=== PATIENT | female | born 1975 | race Caucasian/White ===

== ENCOUNTER 2017-11-12 00:29 | Day surgery (SDC) | payer OTHER ==
[~2017-11-12 00:29] MED LIST: Allergy Relief10 M1 PO; Hydrocortisone5 MG PO; Keflex500 MG PO; MONT10T PO; ONDA4 PO; PRED20 PO; PROG100 PO; RIFA550T2; WP THYROID16.25 MG PO; [UNRECOGNIZED DRUG - OTHER] IV
== END 2017-11-12 10:31 | disposition home or self-care (01) ==
LOC: ATC 00:29
DX: D80.3 Selective deficiency of immunoglobulin G [IgG] subclasses (principal); Z79.899 Other long term (current) drug therapy; Z88.2 Allergy status to sulfonamides
CPT/HCPCS: 96365; 96366; J1568

== ENCOUNTER 2017-12-03 01:02 | Day surgery (SDC) | payer OTHER | END 2017-12-03 09:52 | disposition home or self-care (01) | LOC: ATC 01:02 | DX: D80.3 Selective deficiency of immunoglobulin G [IgG] subclasses (principal); Z88.2 Allergy status to sulfonamides | CPT/HCPCS: 96365; 96366; J1568 ==

== ENCOUNTER → 2017-12-10 | Outpatient (CLI) | payer OTHER ==
[2017-12-14 10:56] LABS: HPV Genotype 16 Not Detected (NOTDET); HPV Genotype 18 Not Detected (NOTDET)
[2017-12-18 08:30] LABS: HPV High Risk Other Not Detected (NOTDET)
== END | disposition home or self-care (01) ==
LOC: LAB 09:42
PROVIDERS: Obstetrics & Gynecology
DX: Z01.419 Encounter for gynecological examination (general) (routine) without abnormal findings (principal)
CPT/HCPCS: 87624; G0123

== ENCOUNTER → 2018-01-21 | Outpatient (CLI) | payer OTHER ==
[2018-01-21 15:03] LABS: Candida species (DNA Probe) Negative (NEGATIVE); G. vaginalis (DNA Probe) Negative (NEGATIVE); T. vaginalis (DNA Probe) Negative (NEGATIVE)
== END | disposition home or self-care (01) ==
LOC: LAB 11:24
PROVIDERS: Obstetrics & Gynecology
DX: N89.8 Other specified noninflammatory disorders of vagina (principal)
CPT/HCPCS: 87480; 87510; 87660

== ENCOUNTER → 2020-02-16 | Outpatient (CLI) | payer BC | END | disposition home or self-care (01) | LOC: LAB SHORT 09:08 → PLD 09:08 | DX: R87.613 High grade squamous intraepithelial lesion on cytologic smear of cervix (HGSIL) (principal) | CPT/HCPCS: 88305; 88342 ==

== ENCOUNTER 2020-04-22 08:39 | Day surgery (SDC) | payer BC ==
[~2020-04-22] VITALS: Ht 154.9 cm; Wt 48.5 kg
[~2020-04-22 08:39] MED LIST changes: +THYROID PO
--- NOTE | 2020-04-22 09:21 | NUR ---
History, Chart, Medications and Allergies reviewed before start of procedure. Patient confirms NPO status and agrees with scheduled surgery. Reports that she did not do chlorhexidine showers at home.
[2020-04-22] MEDS ORDERED: ALBU90OI INH (09:29)
[2020-04-22] MEDS ORDERED: NATURE-THROI81.25 MG PO (09:31)
[2020-04-22] MEDS ORDERED: [UNRECOGNIZED DRUG - OTHER] (09:33)
[2020-04-22] MEDS ORDERED: BIEST CREAM (09:36)
[2020-04-22] MEDS ORDERED: [UNRECOGNIZED DRUG - OTHER] (09:37)
[2020-04-22] MEDS ORDERED: EDTA (09:37)
[2020-04-23 04:00] LABS: BASOPHILS ABSOLUTE AUTO 0.01 K/mm3 (0.00-0.23); BASOPHILS PERCENT AUTO 0 % (0-2); EOSINOPHILS PERCENT AUTO 2 % (0-6); Hematocrit 32.5 % (33.0-51.0); Hemoglobin 10.3 g/dL (11.5-16.0); IMMATURE GRAN ABSOLUTE AUTO 0.05 K/mm3 (0.00-0.10); IMMATURE GRAN PERCENT AUTO 0 % (0-1); LYMPHOCYTES ABSOLUTE AUTO 2.24 K/mm3 (0.84-5.20); LYMPHOCYTES PERCENT AUTO 19 % (21-46); MONOCYTES ABSOLUTE AUTO 0.97 K/mm3 (0.16-1.47); MONOCYTES PERCENT AUTO 8 % (4-13); Mean Corpuscular HGB 28.3 pg (26.0-34.0); Mean Corpuscular HGB Conc 31.7 g/dL (31.5-36.5); Mean Corpuscular Volume 89 fL (80-100); Mean Platelet Volume 10.2 fL (9.1-12.4); NEUTROPHILS ABSOLUTE AUTO 8.26 K/mm3 (1.96-9.15); NEUTROPHILS PERCENT AUTO 70 % (41-73); Platelet Count 162 K/mm3 (150-400); RDW Coefficient Variation 13.1 % (11.7-14.2); RDW Standard Deviation 42.9 fL (35.1-46.3); Red Blood Cell Count 3.64 M/mm3 (3.80-5.20); White Blood Cell Count 11.73 K/mm3 (4.00-11.30)
--- NOTE | 2020-04-23 05:14 | NUR ---
POD 1 S/P VAGINAL HYSTER. PT VSS T/O NIGHT. PT HAVING SCANT VAGINAL BLEEDING. PAIN MGD PER EMAR W/REP RELIEF. PT SUZETTE REG PO, NO N/V. PT AMB IN HALLS, SUZETTE WELL. PLAN TO D/C [facility] CATH THIS AM. PT USING CALL LIGHT FOR ASSISTANCE, WILL CONT TO MONITOR UNTIL REP GIVEN TO ONCOMING RN.
--- NOTE | 2020-04-23 07:23 | NUR ---
DR Yash MACHADO IN TO SEE PT.
[2020-04-23] MEDS ORDERED: DOCU100 PO (11:28)
[2020-04-23] MEDS ORDERED: HYDR1TAB94 PO (11:29)
[2020-04-23] MEDS ORDERED: IBU800 MG PO (11:29)
--- NOTE | 2020-04-23 11:46 | NUR ---
PT PASSED VOIDING TRIAL
--- NOTE | 2020-04-23 13:22 | NUR ---
DISCHARGED PT PASSED VOIDING TRIAL. PASSED FLATUS. TOLERATED PO PAIN MEDS AND AMBULATED. DC'D IV; CATHETER INTACT. REVIEWED DC INSTRUCTIONS; PT VERBALIZED UNDERSTANDING. LEFT UNIT IN WC W/POSSESSIONS AND DC PAPERWORK ACCOMPANIED BY SPOUSE.
== END 2020-04-23 13:00 | disposition home or self-care (01) ==
LOC: ORSCMMR 08:39 → ORD 10:00 → SURS 15:07 → ORSCMMR 04-23 13:00
PROVIDERS: Obstetrics & Gynecology
PROC: 0UT97ZZ Resection of Uterus, Via Natural or Artificial Opening (ICD-10-PCS; principal; 2020-04-22 10:00)
DX: N87.9 Dysplasia of cervix uteri, unspecified (principal); R87.810 Cervical high risk human papillomavirus (HPV) DNA test positive; N92.1 Excessive and frequent menstruation with irregular cycle; N80.0 Endometriosis of uterus; D25.9 Leiomyoma of uterus, unspecified; J45.909 Unspecified asthma, uncomplicated; E03.9 Hypothyroidism, unspecified; Z79.899 Other long term (current) drug therapy
CPT/HCPCS: 36415; 85025; 88307; 88342; A9270-GY; J0171; J0690; J1100; J1170; J1885; J2250; J2370; J2405; J2704; J2710; J2765; J3010; J7120

== ENCOUNTER → 2022-02-19 | Outpatient (CLI) | payer BC ==
[~2022-02-19] MED LIST changes: +ALBU90OI INH; +BIEST CREAM; +DOCU100 PO; +EDTA; +HYDR1TAB94 PO; +IBU800 MG PO; +NATURE-THROI81.25 MG PO; +[UNRECOGNIZED DRUG - OTHER]; +[UNRECOGNIZED DRUG - OTHER]
[2022-02-20 13:01] LABS: Candida species (DNA Probe) Negative (NEGATIVE); G. vaginalis (DNA Probe) Negative (NEGATIVE); T. vaginalis (DNA Probe) Negative (NEGATIVE)
[2022-02-23 16:09] LABS: HPV 16 Negative (Negative); HPV 18 Negative (Negative); HPV OTHER HR TYPES Negative (Negative)
== END | disposition home or self-care (01) ==
LOC: LAB SHORT 15:15
PROVIDERS: Obstetrics & Gynecology
DX: Z01.419 Encounter for gynecological examination (general) (routine) without abnormal findings (principal); N76.0 Acute vaginitis
CPT/HCPCS: 87480; 87510; 87624; 87660; G0123

== ENCOUNTER → 2023-05-26 | Outpatient (CLI) | payer OTHER ==
[2023-05-28 15:12] LABS: HPV 16 Negative (Negative); HPV 18 Negative (Negative); HPV OTHER HR TYPES Negative (Negative)
== END | disposition home or self-care (01) ==
LOC: LAB SHORT 15:44 → LAB 15:44
PROVIDERS: Obstetrics & Gynecology
DX: Z01.419 Encounter for gynecological examination (general) (routine) without abnormal findings (principal)
CPT/HCPCS: 87624; G0145